=== PATIENT | male | born 1955 | race Caucasian/White ===

== ENCOUNTER 2024-04-14 07:37 | Outpatient (CLI) | payer MEDICARE, BC, SELFPAY ==
--- NOTE | 2024-04-14 09:37 | W.ANESCHARGE ---
Anesthesia Charges Start Date/Time Anesthesia Start Date: 04/14/24 Anesthesia Start Time: 09:14 Stop Date/Time Anesthesia Stop Date: 04/14/24 Anesthesia Stop Time: 09:34
--- NOTE | 2024-04-14 10:21 | W.ANESCHARGE ---
Anesthesia Charges Start Date/Time Anesthesia Start Date: 04/14/24 Anesthesia Start Time: 09:14 Stop Date/Time Anesthesia Stop Date: 04/14/24 Anesthesia Stop Time: 09:34
== END 2024-04-14 07:38 | disposition home or self-care (01) ==
LOC: OP CLINIC 07:38
PROVIDERS: PCP Internal Medicine; Visit Provider Internal Medicine Gastroenterology
DX: Z12.11 Encounter for screening for malignant neoplasm of colon (principal); Z86.010 Personal history of colon polyps
CPT/HCPCS: 00811; 00812; 45378; J2704